=== PATIENT | male | born 1990 | race American Indian/Alaskan Native ===

== ENCOUNTER 2018-11-02 12:14 | Emergency (ER) | payer MEDICAID, OTHER ==
[2018-11-02 12:18] VITALS: BMI 20.9
--- NOTE | 2018-11-02 12:56 | ED PDOC ---
Arrival/HPI - General Time Seen by Provider: 11/02/18 12:15 Historian: Patient - History of Present Illness Narrative History of Present Illness (Text): 11/02/18 12:43 28 year old male, with past medical history of nephrolithiasis, presents to the ED for evaluation of hematuria associated with suprapubic abdominal pain since waking up this morning. Patient reports excruciating discomfort with radiation of pain down to his testicle, prompting him to present to the ED for medical evaluation. As per patient, symptoms are different than past episodes of kidney stones. Patient additionally reports associated nausea, vomiting and constipation. Patient is unable to recall his last normal bowel movement. Patient reports taking percocet at home for his chronic back pain. Patient denies any other associated somatic complaints. Patient denies any fevers, chills, headache, dizziness, chest pain, shortness of breath, dyspnea on exertion, cough, diarrhea, neck pain, or any other complaints. Time/Duration: Prior to Arrival Symptom Onset: Gradual Symptom Course: Unchanged Quality: Aching Activities at Onset: Light Context: Home Past Medical History - Provider Review Nursing Documentation Reviewed: Yes Family/Social History - Physician Review Nursing Documentation Reviewed: Yes Family/Social History: Unknown Family HX Allergies/Home Meds Allergies/Adverse Reactions: Allergies No Known Allergies Allergy (Verified 11/02/18 12:17) Home Medications: Home Meds Medication Instructions Recorded Confirmed oxyCODONE/Acetaminophen [Percocet 1 tab PO PRN PRN 11/02/18 11/02/18 5/325 mg Tab] Review of Systems - Physician Review All systems were reviewed & negative as marked: Yes - Review of Systems Constitutional: absent: Fevers Eyes: absent: Vision Changes Respiratory: absent: SOB, Cough Cardiovascular: absent: Chest Pain Gastrointestinal: Abdominal Pain, Constipation, Nausea, Vomiting. absent: Diarrhea Genitourinary Male: Hematuria Musculoskeletal: absent: Neck Pain Skin: absent: Rash Neurological: absent: Headache, Dizziness Endocrine: absent: Diaphoresis Hemo/Lymphatic: absent: Easy Bleeding Psychiatric: absent: Anxiety Physical Exam Vital Signs Reviewed: Yes Temperature: Afebrile Blood Pressure: Normal Pulse: Regular Respiratory Rate: Normal Appearance: Positive for: Well-Appearing, Non-Toxic, Comfortable Pain Distress: None Mental Status: Positive for: Alert and Oriented X 3 - Systems Exam Head: Present: Atraumatic, Normocephalic Pupils: Present: PERRL Extroacular Muscles: Present: EOMI Conjunctiva: Present: Normal Neck: Present: Normal Range of Motion Respiratory/Chest: Present: Clear to Auscultation, Good Air Exchange. No: Respiratory Distress, Accessory Muscle Use Cardiovascular: Present: Regular Rate and Rhythm, Normal S1, S2. No: Murmurs Abdomen: Present: Tenderness (diffused abdominal tenderness). 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 No: Penile Discharge, Testicle Tenderness, Penile Swelling, Testicle Swelling Back: Present: CVA Tenderness (right CVA tenderness) Upper Extremity: Present: Normal Inspection. No: Cyanosis, Edema Lower Extremity: Present: Normal Inspection. No: Edema Neurological: Present: GCS=15, CN II-XII Intact, Speech Normal Skin: Present: Warm, Dry, Normal Color. No: Rashes Psychiatric: Present: Alert, Oriented x 3, Normal Insight, Normal Concentration Medical Decision Making ED Course and Treatment: 11/02/18 12:43 Impression: 28 year old male presents to the ED complaining of hematuria and suprapubic abdominal pain since this morning. Well appearing on exam, no testicular tenderness. Suprapubic abdominal pain w/ CVAT. Likely kidney stone. Per RN pt has a hx of chronic back pain. No Vertebral tenderness or IVDU. No DM2. No enuresis / encoparesis or saddle anesthesia. MAEW. Will CT for ? kidney stone and Seek US. No dark or bloody stool. No clots in urine. No difficulty urinating. Differential Diagnosis included but are not limited to: Nephrolithiasis, UTI. Plan: -- CT of Abdomen/Pelvis -- Labs -- Toradol -- Urine Culture -- Urinalysis -- US Testes -- Reassess and disposition Prior Visits: Notes and results from previous visits were reviewed. Progress Notes: 11/02/18 15:15 US of Testes reviewed by radiologist, shows: No evidence for testicular mass or torsion. CT of Abdomen/Pelvis reviewed by radiologist, shows: 2 mm calcification in the right hemipelvis along the course of the distal ureteral may represent ureteral stone. Edema and enlargement of the right kidney with perinephric stranding and mild fullness of the collecting system with dilatation of the right ureteral most compatible with recent passage of ureteral stone. Punctate nonobstructing stones in the upper pole of the right kidney. 11/02/18 15:44 abd non-ttp on reassessment, CVAT improved greatly, but pt asking for one more toradol before going home. No WBC in urine. Mild bacteria w/ maegan-nephric standing No leukocytosis, No fever No DM2 No single kidney Tolerating clears well Given mild bacteria w/ perinephric (likely 2/2 kidney stone per rads) will rx home w/ abx. Will also have pt f/u w/ Uro and pmd. Pt agreeable to plan and notes he does not want percocet because he has it at home for his chronic back pain. - RAD Interpretation Radiology Orders: 11/02/18 12:43 ABD & PELVIS W/O PO OR IV CONT [CT] Stat TESTES DUPLEX COMPLETE [US] Stat Pigment Making Supervisor: Radiologist - Medication Orders Current Medication Orders: Ketorolac Tromethamine (Toradol) 30 mg IVP STAT STA Stop: 11/02/18 12:43 Ketorolac Tromethamine (Toradol) 15 mg IVP STAT STA Stop: 11/02/18 12:46 - Scribe Statement The provider has reviewed the documentation as recorded by the Scribe Nimco Luo. All medical record entries made by the Scribe were at my direction and persona tamaray dictated by me. I have reviewed the chart and agree that the record accurately reflects my personal performance of the history, physical exam, medical decision making, and the department course for this patient. I have also personally directed, reviewed, and agree with the discharge instructions and disposition. Disposition/Present on Arrival - Present on Arrival Any Indicators Present on Arrival: No - Disposition Have Diagnosis and Disposition been Completed?: Yes Diagnosis: Kidney stone Disposition: HOME/ ROUTINE Disposition Time: 15:47 Patient Problems: Current Active Problems Problem Status Onset Kidney stone Acute Condition: GOOD Discharge Instructions (ExitCare): Kidney Stones in Adults, Urinary Tract Infections in Adults Additional Instructions: HIMANSHU ETIENNE, thank you for letting us take care of you today. Your provider was Sean Figueroa and you were treated for BLOOD IN URINE. The emergency medical care you received today was directed at your acute symptoms. If you were prescribed any medication, please fill it and take as directed. It may take several days for your symptoms to resolve. Return to the Emergency Department if your symptoms worsen, do not improve, or if you have any other problems. Please contact your doctor or call one of the physicians/clinics you have been referred to that are listed on the Patient Visit Information form that is included in your discharge packet. Bring any paperwork you were given at discharge with you along with any medications you are taking to your follow up visit. Our treatment cannot replace ongoing medical care by a primary care provider outside of the emergency department. Thank you for allowing the [facility] team to be part of your care today. If you had an X-Ray or CT scan: A Radiologist will review the ED reading if any change in treatment is needed we will contact you. If you had a blood, urine, or wound culture: It will take several days for the results, if any change in treatment is needed we will contact you. If you had an STI test: It will take 48 hours for the results. Please call after 1 week if you have not heard back. Prescriptions: Ciprofloxacin [Cipro] 500 mg PO BID 14 Days #28 tab Ibuprofen [Motrin] 600 mg PO Q6H PRN 6 Days #24 tab PRN Reason: Pain, Moderate (4-7) Tamsulosin [Flomax] 0.4 mg PO DAILY 7 Days #7 cap Referrals: FAMILY PROVIDER,PADDY [Primary Care Provider] - [place] up with [place] [facility] [place] - Follow up with primary [facility] [Outside] - Follow up with primary Dalila Davila MD [Staff Provider] - Follow up with primary Forms: WORK NOTE
[2018-11-02 13:13] LABS: BASO # 0.01 K/mm3 (0.0-2.0); BASO % 0.1 % (0.0-3.0); EOS # 0.2 (0.0-0.7); EOS % 2.6 % (1.5-5.0); GRAN # 5.01 (1.4-6.5); GRAN % 62.5 % (50.0-68.0); HEMOGLOBIN 15.2 g/dL (14.0-18.0); LYMPH # 2.2 (1.2-3.4); LYMPH % 27.6 % (22.0-35.0); MEAN CELL VOLUME 89.1 fl (80.0-105.0); MEAN CORPUSCULAR HEMOGLOBIN 29.6 pg (25.0-35.0); MEAN CORPUSCULAR HGB CONC 33.2 g/dl (31.0-37.0); MEAN PLATELET VOLUME 10.4 fl (7.0-11.0); MONO # 0.6 (0.1-0.6); MONO % 7.2 % (1.0-6.0); RBC 5.14 10^6/uL (3.5-6.1); RED CELL DISTRIBUTION WIDTH 12.7 % (11.5-14.5)
[2018-11-02 13:23] LABS: ALB/GLOB RATIO 1.4 (1.1-1.8); ALBUMIN 4.7 g/dL (3.0-4.8); ALT/SGPT 32 U/L (7-56); AST/SGOT 24 U/L (17-59); BLOOD UREA NITROGEN 12 mg/dL (7-21); GFR NON-AFRICAN AMERICAN > 60; LIPASE 25 U/L (23-300)
[2018-11-02] MEDS ORDERED: Sodium Chloride 0.9% 1,000 ML IV STA (14:37)
[2018-11-02 14:45] LABS: URINE APPEARANCE CLEAR (CLEAR); URINE BILIRUBIN SMALL (NEGATIVE); URINE BLOOD MODERATE (NEGATIVE); URINE COLOR YELLOW (YELLOW); URINE GLUCOSE (UA) NEGATIVE (NEGATIVE); URINE LEUKOCYTE ESTERASE NEGATIVE Leu/uL (NEGATIVE); URINE PROTEIN TRACE mg/dL (<30 mg/dL)
--- NOTE | 2018-11-02 15:03 | CT ---
Date of service: 11/02/2018 PROCEDURE: CT Abdomen and Pelvis without intravenous contrast HISTORY: hx of kidney stone now w/ bloody urine, abd pain COMPARISON: None. TECHNIQUE: CT scan of the abdomen and pelvis was performed without administration of intravenous contrast. Oral contrast was not administered. Coronal and sagittal reformatted images were obtained. . Radiation dose: Total exam DLP = 186.48 mGy-cm. This CT exam was performed using one or more of the following dose reduction techniques: Automated exposure control, adjustment of the mA and/or kV according to patient size, and/or use of iterative reconstruction technique. FINDINGS: LOWER THORAX: The visualized lungs are clear. LIVER: Normal in size. No intrahepatic ductal dilatation. GALLBLADDER AND BILE DUCTS: No calcified gallstones. No biliary dilatation PANCREAS: Normal in size. No ductal dilatation. SPLEEN: Normal in size. ADRENALS: Normal in size. No discrete nodule. KIDNEYS AND URETERS: Right kidney is enlarged and edematous with perinephric fat stranding. There is mild fullness in the collecting system mild diffuse dilatation of the right ureteral. There is a 2 mm calcification in the right hemipelvis along the course of the distal ureteral. There are punctate nonobstructing stones in the upper pole. The left kidney is normal in size without nephrolithiasis or hydronephrosis. VASCULATURE: No aortic aneurysm. No aortic atherosclerotic calcification or mural plaque present. BOWEL: The small bowel loops are normal in caliber. There is moderate amount of stool in the colon. No bowel dilatation or wall thickening. No bowel obstruction. APPENDIX: Normal appendix. PERITONEUM: No free fluid. No free air. LYMPH NODES: No enlarged lymph nodes. BLADDER: Well distended and grossly normal in appearance. REPRODUCTIVE: The prostate gland is normal in size BONES: No acute fracture. OTHER FINDINGS: None. IMPRESSION: 2 mm calcification in the right hemipelvis along the course of the distal ureteral may represent ureteral stone. Edema and enlargement of the right kidney with perinephric stranding and mild fullness of the collecting system with dilatation of the right ureteral most compatible with recent passage of ureteral stone. Punctate nonobstructing stones in the upper pole of the right kidney.
--- NOTE | 2018-11-02 15:08 | US ---
Date of service: 11/02/2018 HISTORY: testicular pain TECHNIQUE: Realtime sonography through the scrotum with color and doppler flow. COMPARISON: None Available. FINDINGS: RIGHT TESTICLE: Measures 4.6 x 1.5 x 2.7 cm. Normal echotexture and flow. RIGHT EPIDIDYMIS: Epididymal head measures 0.8 x 0.7 x 0.7 cm. Grossly unremarkable appearance with normal flow. LEFT TESTICLE: Measures 4.3 x 1.9 x 2.6 cm. Normal echotexture and flow. LEFT EPIDIDYMIS: Epididymal head measures 1.1 x 0.6 x 1.2 cm. There is a 4 x 4 x 4 mm simple cyst in the head of the epididymis. Otherwise normal in echotexture the with normal flow. HYDROCELE: None. VARICOCELE: There is a small left hydrocele. OTHER FINDINGS: None. IMPRESSION: No evidence for testicular mass or torsion.
[2018-11-02 15:11] LABS: URINE BACTERIA SMALL (NEG); URINE RBC 15 - 20 /hpf (0-2)
[2018-11-02 15:13] LABS: URINE EPITHELIAL CELLS 0 - 2 /hpf (0-5); URINE WBC 0 - 2 /hpf (0-6)
[2018-11-02 16:29] VITALS: BP 115/70; PULSE 59; RESP 16; TEMP 99.1; O2SAT 100
== END 2018-11-02 16:20 | disposition home or self-care (01) ==
LOC: ED 12:14
DX: N20.0 Calculus of kidney (principal)
CPT/HCPCS: 74176; 80053; 81001; 83690; 85025; 87086; 93975; 96361; 96374; 96376; 99283; J1885; J7030